=== PATIENT | male | born 1935 | race Two or more races ===

== ENCOUNTER 2019-04-06 15:48 | Inpatient (IN) | payer MEDICARE, BC ==
[2019-04-06] MEDS ORDERED: PENDING SANTYL ORDER FOR WOUND CARE XX (16:30)
[2019-04-06] MEDS ORDERED: BISACODYL 10 MG SUPP PR (17:00)
[2019-04-06] MEDS ORDERED: ACETAMINOPHEN 325 MG TAB PO (17:00)
[2019-04-06] MEDS ORDERED: ALPRAZOLAM 0.25 MG TAB PO (20:00)
[2019-04-06] MEDS: ATORVASTATIN 40 MG TAB PO (20:10)
[2019-04-06] MEDS: DOCUSATE SODIUM 100 MG CAP PO (20:10)
[2019-04-06] MEDS: SENNA TAB PO (20:11)
[2019-04-06] MEDS: ISOSORBIDE DINITRATE 20 MG TAB PO (20:12)
[2019-04-06] MEDS: NIFEdipine (XL) 30 MG TAB PO (20:12)
[2019-04-06] MEDS: FAMOTIDINE 20 MG TAB PO (23:09)
[2019-04-07] MEDS: LEVOTHYROXINE 125 MCG TAB PO (06:09)
[2019-04-07] MEDS: ISOSORBIDE DINITRATE 20 MG TAB PO (09:00)
[2019-04-07] MEDS: NIFEdipine (XL) 30 MG TAB PO (09:22)
[2019-04-07] MEDS: DOCUSATE SODIUM 100 MG CAP PO (09:22)
[2019-04-07] MEDS: ESCITALOPRAM 10 MG TAB PO (09:23)
[2019-04-07 10:24] LABS: ADD MAN DIFF? NO
[2019-04-07 10:31] LABS: ABNORMAL IP MESSAGE 1; BASOPHIL # 0.1 10^3/ul (0.0-0.1); BASOPHILS % 1.1 % (0.0-2.0); EOSINOPHILS # 0.5 10^3/ul (0.0-0.5); EOSINOPHILS % 10.3 % (0.0-7.0); HEMATOCRIT 35.7 % (42.0-52.0); HEMOGLOBIN 11.6 g/dl (14.0-18.0); LYMPHOCYTES # 1.1 10^3/ul (0.8-2.9); LYMPHOCYTES % 24.2 % (15.0-51.0); MEAN CORPUSCULAR HEMOGLOBIN 34.3 pg (29.0-33.0); MEAN CORPUSCULAR HGB CONC 32.5 g/dl (32.0-37.0); MEAN CORPUSCULAR VOLUME 105.6 fl (82.0-101.0); MEAN PLATELET VOLUME 10.6 fl (7.4-10.4); MONOCYTE # 0.4 10^3/ul (0.3-0.9); MONOCYTES % 8.8 % (0.0-11.0); NEUTROPHIL # 2.5 10^3/ul (1.6-7.5); NEUTROPHILS % 55.2 % (39.0-77.0); PLATELET COUNT 64 10^3/UL (140-415); POSITIVE DIFF @See below; RED BLOOD COUNT 3.38 10^6/ul (4.70-6.10); RED CELL DISTRIBUTION WIDTH 16.7 % (11.5-14.5)
[2019-04-07 10:31] LABS: WHITE BLOOD COUNT 4.6 10^3/ul (4.8-10.8)
[2019-04-07 10:50] LABS: ALANINE AMINOTRANSFERASE 40 IU/L (13-69); ALBUMIN/GLOBULIN RATIO 0.93; ALKALINE PHOSPHATASE 89 IU/L (42-121); ANION GAP 7 (5-13); ASPARTATE AMINO TRANSFERASE 34 IU/L (15-46); BILIRUBIN,INDIRECT 0.7 mg/dl (0-1.1); BILIRUBIN,TOTAL 0.7 mg/dl (0.2-1.3); BLOOD UREA NITROGEN 47 mg/dl (7-20); CALCIUM 8.5 mg/dl (8.4-10.2); CARBON DIOXIDE 28 mmol/L (21-31); CHLORIDE 99 mmol/L (97-110); CREATININE 3.72 mg/dl (0.61-1.24); GLUCOSE 146 mg/dl (70-220); POTASSIUM 4.1 mmol/L (3.5-5.1); SODIUM 134 mmol/L (135-144); TOTAL PROTEIN 6.2 g/dl (6.1-8.1)
[2019-04-07 20:46] LABS: HEPATITIS B SURFACE ANTIGEN NEGATIVE (NEGATIVE)
[2019-04-08] MEDS: ATORVASTATIN 40 MG TAB PO ×2 (00:19→20:41)
[2019-04-08] MEDS: FAMOTIDINE 20 MG TAB PO ×2 (00:19→20:41)
[2019-04-08] MEDS: DOCUSATE SODIUM 100 MG CAP PO ×3 (00:22→20:59)
[2019-04-08] MEDS: ISOSORBIDE DINITRATE 20 MG TAB PO ×3 (00:22→20:41)
[2019-04-08] MEDS: NIFEdipine (XL) 30 MG TAB PO ×3 (00:22→20:41)
[2019-04-08] MEDS: SENNA TAB PO ×2 (00:23→20:59)
[2019-04-08] MEDS: LEVOTHYROXINE 125 MCG TAB PO (06:01)
[2019-04-08 07:28] LABS: ADD MAN DIFF? NO
[2019-04-08 07:36] LABS: WHITE BLOOD COUNT 4.8 10^3/ul (4.8-10.8)
[2019-04-08 07:36] LABS: ABNORMAL IP MESSAGE 1; BASOPHIL # 0.1 10^3/ul (0.0-0.1); BASOPHILS % 1.2 % (0.0-2.0); EOSINOPHILS # 0.4 10^3/ul (0.0-0.5); EOSINOPHILS % 8.9 % (0.0-7.0); HEMATOCRIT 36.7 % (42.0-52.0); HEMOGLOBIN 11.7 g/dl (14.0-18.0); LYMPHOCYTES # 1.3 10^3/ul (0.8-2.9); LYMPHOCYTES % 27.8 % (15.0-51.0); MEAN CORPUSCULAR HEMOGLOBIN 33.9 pg (29.0-33.0); MEAN CORPUSCULAR HGB CONC 31.9 g/dl (32.0-37.0); MEAN CORPUSCULAR VOLUME 106.4 fl (82.0-101.0); MONOCYTE # 0.5 10^3/ul (0.3-0.9); MONOCYTES % 9.3 % (0.0-11.0); NEUTROPHIL # 2.5 10^3/ul (1.6-7.5); NEUTROPHILS % 52.6 % (39.0-77.0); PLATELET COUNT 70 10^3/UL (140-415); POSITIVE DIFF @See below; RED BLOOD COUNT 3.45 10^6/ul (4.70-6.10); RED CELL DISTRIBUTION WIDTH 16.7 % (11.5-14.5)
[2019-04-08 08:01] LABS: ANION GAP 6 (5-13); BLOOD UREA NITROGEN 34 mg/dl (7-20); CALCIUM 8.5 mg/dl (8.4-10.2); CARBON DIOXIDE 28 mmol/L (21-31); CHLORIDE 102 mmol/L (97-110); GLUCOSE 86 mg/dl (70-220); POTASSIUM 4.3 mmol/L (3.5-5.1); SODIUM 136 mmol/L (135-144)
[2019-04-08 08:16] LABS: MAGNESIUM 1.8 mg/dl (1.7-2.5)
[2019-04-08 08:39] LABS: PHOSPHORUS 3.2 mg/dl (2.5-4.9)
[2019-04-08] MEDS: ESCITALOPRAM 10 MG TAB PO (09:13)
[2019-04-08] MEDS: LACTULOSE 30ML CUP PO (20:41)
[2019-04-09] MEDS: LEVOTHYROXINE 125 MCG TAB PO (06:36)
[2019-04-09] MEDS: ISOSORBIDE DINITRATE 20 MG TAB PO ×2 (09:00→21:40)
[2019-04-09] MEDS: ESCITALOPRAM 10 MG TAB PO (09:53)
[2019-04-09] MEDS: NIFEdipine (XL) 30 MG TAB PO ×2 (09:53→21:40)
[2019-04-09 11:08] LABS: ADD UMIC YES; UR ASCORBIC ACID NEGATIVE (NEGATIVE); UR BILIRUBIN (Dip) NEGATIVE (NEGATIVE); UR BLOOD (Dip) 2+ mg/dL (NEGATIVE); UR CLARITY CLEAR (CLEAR); UR COLOR YELLOW (YELLOW); UR GLUCOSE (Dip) NEGATIVE (NEGATIVE); UR KETONES (Dip) NEGATIVE (NEGATIVE); UR LEUKOCYTE ESTERASE (Dip) NEGATIVE Leu/ul (NEGATIVE); UR NITRITE (Dip) NEGATIVE (NEGATIVE); UR RBC 22 /HPF (0-5); UR SPECIFIC GRAVITY (Dip) 1.019 (1.003-1.030); UR TOTAL PROTEIN (Dip) 2+ mg/dl (NEGATIVE); UR UROBILINOGEN (Dip) 1+ mg/dL (NEGATIVE); UR WBC 4 /HPF (0-5)
[2019-04-09] MEDS: DOCUSATE SODIUM 100 MG CAP PO ×2 (12:03→21:39)
[2019-04-09] MEDS: SENNA TAB PO (21:39)
[2019-04-09] MEDS: ATORVASTATIN 40 MG TAB PO (21:39)
[2019-04-09] MEDS: FAMOTIDINE 20 MG TAB PO (21:39)
[2019-04-10] MEDS: LEVOTHYROXINE 125 MCG TAB PO (06:30)
[2019-04-10] MEDS: ISOSORBIDE DINITRATE 20 MG TAB PO ×2 (09:00→20:30)
[2019-04-10] MEDS: NIFEdipine (XL) 30 MG TAB PO ×2 (09:00→20:30)
[2019-04-10] MEDS: DOCUSATE SODIUM 100 MG CAP PO ×2 (09:12→20:29)
[2019-04-10] MEDS: ESCITALOPRAM 10 MG TAB PO (09:12)
[2019-04-10 10:11] LABS: ANION GAP 10 (5-13); BLOOD UREA NITROGEN 53 mg/dl (7-20); CARBON DIOXIDE 26 mmol/L (21-31); CHLORIDE 98 mmol/L (97-110); CREATININE 3.98 mg/dl (0.61-1.24); GLUCOSE 126 mg/dl (70-220); POTASSIUM 4.6 mmol/L (3.5-5.1); SODIUM 134 mmol/L (135-144)
[2019-04-10] MEDS: SENNA TAB PO (20:29)
[2019-04-10] MEDS: FAMOTIDINE 20 MG TAB PO (20:29)
[2019-04-10] MEDS: ATORVASTATIN 40 MG TAB PO (20:29)
[2019-04-11] MEDS: LEVOTHYROXINE 125 MCG TAB PO (06:34)
[2019-04-11 07:16] LABS: ADD MAN DIFF? NO
[2019-04-11 07:25] LABS: ABNORMAL IP MESSAGE 1; BASOPHIL # 0.1 10^3/ul (0.0-0.1); BASOPHILS % 1.1 % (0.0-2.0); EOSINOPHILS # 0.5 10^3/ul (0.0-0.5); HEMATOCRIT 35.7 % (42.0-52.0); HEMOGLOBIN 11.5 g/dl (14.0-18.0); LYMPHOCYTES # 1.9 10^3/ul (0.8-2.9); LYMPHOCYTES % 41.9 % (15.0-51.0); MEAN CORPUSCULAR HEMOGLOBIN 33.3 pg (29.0-33.0); MEAN CORPUSCULAR HGB CONC 32.2 g/dl (32.0-37.0); MEAN CORPUSCULAR VOLUME 103.5 fl (82.0-101.0); MEAN PLATELET VOLUME 10.9 fl (7.4-10.4); MONOCYTE # 0.4 10^3/ul (0.3-0.9); MONOCYTES % 9.9 % (0.0-11.0); NEUTROPHIL # 1.6 10^3/ul (1.6-7.5); NEUTROPHILS % 36.1 % (39.0-77.0); PLATELET COUNT 96 10^3/UL (140-415); POSITIVE DIFF @See below; RED BLOOD COUNT 3.45 10^6/ul (4.70-6.10); RED CELL DISTRIBUTION WIDTH 15.9 % (11.5-14.5)
[2019-04-11 07:25] LABS: WHITE BLOOD COUNT 4.5 10^3/ul (4.8-10.8)
[2019-04-11 07:43] LABS: ANION GAP 7 (5-13); BLOOD UREA NITROGEN 35 mg/dl (7-20); CALCIUM 8.4 mg/dl (8.4-10.2); CARBON DIOXIDE 30 mmol/L (21-31); CHLORIDE 95 mmol/L (97-110); GLUCOSE 81 mg/dl (70-220); MAGNESIUM 1.7 mg/dl (1.7-2.5); PHOSPHORUS 3.6 mg/dl (2.5-4.9); POTASSIUM 4.1 mmol/L (3.5-5.1); SODIUM 132 mmol/L (135-144)
[2019-04-11] MEDS: ESCITALOPRAM 10 MG TAB PO (08:48)
[2019-04-11] MEDS: DOCUSATE SODIUM 100 MG CAP PO ×2 (08:48→21:19)
[2019-04-11] MEDS: NIFEdipine (XL) 30 MG TAB PO ×2 (09:28→21:20)
[2019-04-11] MEDS: ISOSORBIDE DINITRATE 20 MG TAB PO ×2 (09:28→21:19)
[2019-04-11] MEDS: LACTULOSE 30ML CUP PO (15:16)
[2019-04-11] MEDS: ATORVASTATIN 40 MG TAB PO (21:19)
[2019-04-11] MEDS: FAMOTIDINE 20 MG TAB PO (21:19)
[2019-04-11] MEDS: SENNA TAB PO (21:19)
[2019-04-12] MEDS: LEVOTHYROXINE 125 MCG TAB PO (06:32)
[2019-04-12] MEDS: DOCUSATE SODIUM 100 MG CAP PO ×2 (08:28→20:47)
[2019-04-12] MEDS: ESCITALOPRAM 10 MG TAB PO (08:28)
[2019-04-12] MEDS: ISOSORBIDE DINITRATE 20 MG TAB PO ×2 (08:29→20:48)
[2019-04-12] MEDS: NIFEdipine (XL) 30 MG TAB PO ×2 (08:29→20:49)
[2019-04-12] MEDS: SENNA TAB PO (20:47)
[2019-04-12] MEDS: ATORVASTATIN 40 MG TAB PO (20:48)
[2019-04-12] MEDS: FAMOTIDINE 20 MG TAB PO (20:48)
[2019-04-13] MEDS: LEVOTHYROXINE 125 MCG TAB PO (06:12)
[2019-04-13] MEDS: DOCUSATE SODIUM 100 MG CAP PO (08:39)
[2019-04-13] MEDS: ESCITALOPRAM 10 MG TAB PO (08:39)
[2019-04-13] MEDS: NIFEdipine (XL) 30 MG TAB PO (08:40)
[2019-04-13] MEDS: ISOSORBIDE DINITRATE 20 MG TAB PO (08:40)
== END 2019-04-13 13:10 | disposition home health service (06) | DRG 91 ==
LOC: VRC 15:48
PROC: 5A1D70Z Performance of Urinary Filtration, Intermittent, Less than 6 Hours Per Day (ICD-10-PCS; principal; 2019-04-07)
DX: G92 Toxic encephalopathy (principal); N18.6 End stage renal disease; I13.2 Hypertensive heart and chronic kidney disease with heart failure and with stage 5 chronic kidney disease, or end stage renal disease; I31.3 Pericardial effusion (noninflammatory); I50.9 Heart failure, unspecified; D64.9 Anemia, unspecified; I16.0 Hypertensive urgency; E83.9 Disorder of mineral metabolism, unspecified; E03.9 Hypothyroidism, unspecified; G72.89 Other specified myopathies; Z74.09 Other reduced mobility; Z99.2 Dependence on renal dialysis; F06.31 Mood disorder due to known physiological condition with depressive features; F06.8 Other specified mental disorders due to known physiological condition
CPT/HCPCS: 80048; 80053; 81001; 83735; 84100; 85025; 87081; 87086; 87340; 90935; 92507; 92523; 93005; 93306; 93931; 97110; 97116; 97163; 97166; 97530; 97535